=== PATIENT | male | born 1960 | race Caucasian/White ===

== ENCOUNTER 2025-05-02 12:10 | Outpatient (CLI) | payer MEDICARE ==
[2025-05-02 12:52] LABS: Estimated GFR - POC 84.0
== END 2025-05-02 12:11 | disposition home or self-care (01) ==
LOC: SCSMRI 12:10
PROVIDERS: ATTEND Radiology Radiation Oncology
DX: C61 Malignant neoplasm of prostate (principal)
CPT/HCPCS: 36415; 72197; 82565